=== PATIENT | female | born 1950 | race Hispanic/Latino ===

== ENCOUNTER 2017-06-24 19:50 | Emergency (ER) | payer BC, MEDICARE ==
[2017-06-24 19:51] VITALS: BMI 17.1
[2017-06-24 19:59] VITALS: RESP 18; TEMP 97.5
[2017-06-24] MEDS ORDERED: Sodium Chloride 0.9% 1,000 ML IV ONE (20:24)
--- NOTE | 2017-06-24 20:51 | ED PDOC ---
Arrival/HPI - General Chief Complaint: Weakness/Neurological Deficit Time Seen by Provider: 06/24/17 20:01 Historian: Patient, EMS - History of Present Illness Narrative History of Present Illness (Text): 06/24/17 20:48 A 66 year old female presents to the emergency department with 1 week duration generalized weakness with 4 day duration watery diarrhea. The patient denies blood in stool, fever, or pain. As per EMS, the patient was able to walk down multiple flights of stairs to the ambulance. The patient denies fevers, chills, headache, dizziness, chest pain, shortness of breath, dyspnea on exertion, cough , abdominal pain, nausea, vomiting, back pain, neck pain, urinary/bowel changes , or any other complaint. Time/Duration: Other (1 week) Symptom Onset: Sudden Symptom Course: Unchanged Activities at Onset: Rest, Light Context: Home Past Medical History - Provider Review Nursing Documentation Reviewed: Yes - Infectious Disease Hx of Infectious Diseases: None - Tetanus Immunization Tetanus Immunization: Unknown - Cardiac Hx Hypertension: Yes - Pulmonary Hx Respiratory Disorders: Yes Hx Pneumonia: Yes - Neurological Hx Neurological Disorder: No - HEENT Hx HEENT Disorder: No - Renal Hx Renal Disorder: No - Endocrine/Metabolic Hx Endocrine Disorders: No - Hematological/Oncological Hx Blood Disorders: No - Integumentary Hx Dermatological Disorder: No - Musculoskeletal/Rheumatological Hx Musculoskeletal Disorders: Yes Hx Osteoporosis: Yes - Gastrointestinal Hx Gastrointestinal Disorders: No - Genitourinary/Gynecological Hx Genitourinary Disorders: No - Psychiatric Hx Psychophysiologic Disorder: No Hx Substance Use: No - Surgical History Hx Section: Yes - Anesthesia Hx Anesthesia: Yes - Suicidal Assessment Feels Threatened In Home Enviroment: No Family/Social History - Physician Review Nursing Documentation Reviewed: Yes Family/Social History: No Known Family HX Smoking Status: Current Some Days Smoker Hx Alcohol Use: No Hx Substance Use: No Hx Substance Use Treatment: No Allergies/Home Meds Allergies/Adverse Reactions: Allergies No Known Allergies Allergy (Verified 06/24/17 20:00) Review of Systems - Physician Review All systems were reviewed & negative as marked: Yes - Review of Systems Constitutional: absent: Fevers, Night Sweats Respiratory: absent: SOB, Cough Cardiovascular: absent: Chest Pain Gastrointestinal: Diarrhea. absent: Abdominal Pain, Stool Changes, Nausea, Vomiting Genitourinary Female: absent: Urine Output Changes Musculoskeletal: absent: Back Pain, Neck Pain Neurological: absent: Headache, Dizziness Physical Exam Vital Signs Reviewed: Yes Vital Signs Temp Pulse Resp BP Pulse Ox 06/24/17 22:35 83 18 143/72 99 06/24/17 21:15 85 18 145/76 98 06/24/17 19:58 97.5 F L 82 18 148/73 100 Temperature: Hypothermic Blood Pressure: Normal Pulse: Regular Respiratory Rate: Normal Appearance: Positive for: Well-Appearing, Non-Toxic, Comfortable Pain Distress: None Mental Status: Positive for: Alert and Oriented X 3 Finger Stick Blood Glucose: 147 - Systems Exam Head: Present: Atraumatic, Normocephalic Pupils: Present: PERRL Extroacular Muscles: Present: EOMI Conjunctiva: Present: Normal Mouth: Present: Dry (Mucous membrane mildly dry) Neck: Present: Normal Range of Motion Respiratory/Chest: Present: Clear to Auscultation, Good Air Exchange. No: Respiratory Distress, Accessory Muscle Use Cardiovascular: Present: Regular Rate and Rhythm, Normal S1, S2. No: Murmurs Abdomen: Present: Normal Bowel Sounds. No: Tenderness, Distention, Peritoneal Signs Back: Present: Normal Inspection Upper Extremity: Present: Normal Inspection. No: Cyanosis, Edema Lower Extremity: Present: Normal Inspection. No: Edema Neurological: Present: GCS=15, CN II-XII Intact, Speech Normal Skin: Present: Warm, Dry, Normal Color. No: Rashes Psychiatric: Present: Alert, Oriented x 3, Normal Insight, Normal Concentration Medical Decision Making ED Course and Treatment: 06/24/17 20:59 Impression: A 66 year old female presents with 1 week duration generalized weakness and 4 day duration diarrhea. Plan: -- Chest X-ray -- EKG -- Labs -- Urine Culture -- Urinalysis -- IV Fluids -- Reassess and disposition Progress Notes: EKG: Ordered, reviewed, and independently interpreted the EKG. Rate : 81 BPM Rhythm : NSR Interpretation : Normal axis, normal interval. - Lab Interpretations Lab Results: 06/24/17 20:35 06/24/17 20:35 Lab Results 06/24/17 21:00: Urine Color Yellow, Urine Appearance Sl cloudy, Urine pH 6.0, Ur Specific [place] 1.025, Urine Protein 100 H, Urine Glucose (UA) Negative, Urine Ketones Negative, Urine Blood Moderate H, Urine Nitrate Positive H, Urine Bilirubin Negative, Urine Urobilinogen 0.2, Ur Leukocyte Esterase Small H, Urine RBC 2 - 5, Urine WBC 5 - 10, Ur Epithelial Cells 4 - 5, Urine Bacteria Mod 06/24/17 20:35: Free T4 1.05, Total T3 0.63 L, TSH 3rd Generation 0.96 06/24/17 20:35: Sodium 136, Potassium 4.1, Chloride 100, Carbon Dioxide 25, Anion Gap 15, BUN 40 H, Creatinine 1.5 H, Est GFR ( Amer) 42, Est GFR ( Non-Af Amer) 35, Random Glucose 126 H, Calcium 8.6, Magnesium 2.0, Total Bilirubin 0.4, AST 44 H, ALT 37, Alkaline Phosphatase 91, Lactate Dehydrogenase 516, Total Creatine Kinase 144, Troponin I < 0.01, Total Protein 6.6, Albumin 3.7, Globulin 2.9, Albumin/Globulin Ratio 1.3, Lipase 64 06/24/17 20:35: WBC 8.0 D, RBC 3.96, Hgb 12.0, Hct 34.0 L, MCV 85.9, MCH 30.3, MCHC 35.3, RDW 12.2, Plt Count 167, MPV 9.5, Gran % 86.3 H, Lymph % (Auto) 7.5 L , B[place] % (Auto) 5.9, Eos % (Auto) 0.0 L, Baso % (Auto) 0.3, Gran # 6.86 H, Lymph # 0.6 L, Bucks # 0.5, Eos # 0.0, Baso # 0.02 I have reviewed the lab results: Yes - RAD Interpretation Radiology Orders: 06/24/17 CHEST PORTABLE [RAD] Stat - EKG Interpretation Interpreted by ED Physician: Yes Type: 12 lead EKG - Medication Orders Current Medication Orders: Discontinued Medications Sodium Chloride (Sodium Chloride 0.9%) 1,000 mls @ 250 mls/hr IV .Q4H ONE Stop: 06/25/17 00:23 Last Admin: 06/24/17 20:30 Dose: 250 mls/hr eMAR Start Stop Document 06/24/17 20:30 SF (Rec: 06/24/17 20:31 SF [facility] [id number]) Intravenous Solution Start Date 06/24/17 Start Time 20:30 End Date 06/25/17 End time 00:30 Total Infusion Time 240 Nitrofurantoin Macrocrystals (Macrobid) 100 mg PO STAT STA Stop: 06/24/17 22:15 Last Admin: 06/24/17 22:28 Dose: 100 mg - Scribe Statement The provider has reviewed the documentation as recorded by the Kevyn Pete Provider Scribe Attestation: All medical record entries made by the Scribe were at my direction and personally dictated by me. I have reviewed the chart and agree that the record accurately reflects my personal performance of the history, physical exam, medical decision making, and the department course for this patient. I have also personally directed, reviewed, and agree with the discharge instructions and disposition. Disposition/Present on Arrival - Present on Arrival Any Indicators Present on Arrival: No History of DVT/PE: No History of Uncontrolled Diabetes: No Urinary Catheter: No History of Decub. Ulcer: No History Surgical Site Infection Following: None - Disposition Have Diagnosis and Disposition been Completed?: Yes Diagnosis: Dehydration, UTI (urinary tract infection) Disposition: HOME/ ROUTINE Disposition Time: 21:40 Condition: IMPROVED Discharge Instructions (ExitCare): Dehydration (ED), Urinary Tract Infection in Women (ED) Additional Instructions: Thank you for letting us take care of you today. Your provider was Dr. Pittman. You were treated for dehydration and urinary tract infection. The emergency medical care you received today was directed at your acute symptoms. If you were prescribed any medication, please fill it and take as directed. It may take several days for your symptoms to resolve. Return to the Emergency Department if your symptoms worsen, do not improve, or if you have any other problems. Please contact your doctor or call one of the physicians/clinics you have been referred to that are listed on the Patient Visit Information form that is included in your discharge packet. Bring any paperwork you were given at discharge with you along with any medications you are taking to your follow up visit. Our treatment cannot replace ongoing medical care by a primary care provider (PCP) outside of the emergency department. Thank you for allowing the [facility] team to be part of your care today. Follow up with your primary physician in 2-3 days for re-evaluation and further management. Prescriptions: Nitrofurantoin Macrocrystals [Macrobid] 100 mg PO BID #10 cap Referrals: Ming Gtz MD [Primary Care Provider] - Follow up with primary Forms: [employer] ([place]ian)
[2017-06-24 20:54] LABS: BASO # 0.02 K/mm3 (0.0-2.0); BASO % 0.3 % (0.0-3.0); GRAN # 6.86 (1.4-6.5); GRAN % 86.3 % (50.0-68.0); LYMPH # 0.6 (1.2-3.4); LYMPH % 7.5 % (22.0-35.0); MEAN CELL VOLUME 85.9 fl (80.0-105.0); MEAN CORPUSCULAR HEMOGLOBIN 30.3 pg (25.0-35.0); MEAN CORPUSCULAR HGB CONC 35.3 g/dl (31.0-37.0); MEAN PLATELET VOLUME 9.5 fl (7.0-11.0); MONO # 0.5 (0.1-0.6); MONO % 5.9 % (1.0-6.0); RED CELL DISTRIBUTION WIDTH 12.2 % (11.5-14.5)
[2017-06-24 21:13] LABS: ALB/GLOB RATIO 1.3 (1.1-1.8); ALKALINE PHOSPHATASE 91 U/L (38-126); ALT/SGPT 37 U/L (7-56); AST/SGOT 44 U/L (14-36); BILIRUBIN,TOTAL 0.4 mg/dL (0.2-1.3); BLOOD UREA NITROGEN 40 mg/dL (7-21); CALCIUM 8.6 mg/dL (8.4-10.5); CARBON DIOXIDE 25 mmol/L (21-33); CHLORIDE 100 mmol/L (98-107); GFR AFRICAN-AMERICAN 42; GLUCOSE,RANDOM 126 mg/dL (70-110); LIPASE 64 U/L (23-300); POTASSIUM 4.1 mmol/L (3.6-5.0); SODIUM 136 mmol/L (132-148); TOTAL PROTEIN 6.6 g/dL (5.8-8.3)
[2017-06-24 21:29] LABS: TROPONIN I < 0.01 ng/mL
[2017-06-24 21:34] LABS: FREE T4 1.05 ng/dL (0.78-2.19)
[2017-06-24 21:35] LABS: URINE BILIRUBIN NEGATIVE (NEGATIVE); URINE BLOOD MODERATE (NEGATIVE); URINE GLUCOSE (UA) NEGATIVE (NEGATIVE); URINE KETONE NEGATIVE (NEGATIVE); URINE LEUKOCYTE ESTERASE SMALL Leu/uL (NEGATIVE); URINE PROTEIN 100 mg/dL (<30 mg/dL); URINE UROBILINOGEN 0.2 E.U./dL (<1 E.U./dL)
[2017-06-24 21:36] LABS: URINE APPEARANCE SL CLOUDY (CLEAR); URINE COLOR YELLOW (YELLOW)
[2017-06-24 21:44] LABS: URINE BACTERIA MOD (NEG)
[2017-06-24 21:48] LABS: T3 0.63 ng/mL (0.97-1.69); THYROID STIMULATING HORMONE 0.96 mIU/mL (0.46-4.68)
[2017-06-24 23:55] VITALS: BP 143/72; PULSE 83; O2SAT 99
--- NOTE | 2017-06-25 08:19 | RAD ---
HISTORY: r/o infiltrate COMPARISON: 09/14/2016 FINDINGS: LUNGS: The lungs are well inflated. There is mild pulmonary venous congestion. There is an apparent 10 mm nodular density in the left upper lobe. PLEURA: No significant pleural effusion identified, no pneumothorax apparent. CARDIOVASCULAR: There is borderline cardiomegaly. OSSEOUS STRUCTURES: There is mild levocurvature in the thoracolumbar spine. VISUALIZED UPPER ABDOMEN: Normal. OTHER FINDINGS: None. IMPRESSION: No acute findings. Apparent 10 mm nodular density in the left upper lobe. A dedicated CT scan without intravenous contrast is recommended for further evaluation. The final report is tagged to the PA review folder.
--- NOTE | 2017-06-25 19:33 | CARD ---
APPROVED REPORT EKG Measurement Heart [id number] <Conclusion> Normal sinus rhythm Possible Anterior infarct, age undetermined Abnormal ECG
== END 2017-06-24 22:35 | disposition home or self-care (01) ==
LOC: ED 19:50
DX: E86.0 Dehydration (principal); N39.0 Urinary tract infection, site not specified; I10 Essential (primary) hypertension; Z87.01 Personal history of pneumonia (recurrent); F17.210 Nicotine dependence, cigarettes, uncomplicated
CPT/HCPCS: 71010; 80053; 81001; 82550; 83615; 83690; 83735; 84439; 84443; 84480; 84484; 85025; 87086; 87181; 93005; 96360; 96361; 99285; J7040

== ENCOUNTER 2018-11-23 07:30 | Outpatient (CLI) | payer BC | END 2018-11-23 07:31 | disposition home or self-care (01) | LOC: CARDIO 07:30 | DX: I10 Essential (primary) hypertension (principal); E78.00 Pure hypercholesterolemia, unspecified; M06.9 Rheumatoid arthritis, unspecified; R07.89 Other chest pain ==